=== PATIENT | female | born 1945 | race African-American/Black ===

== ENCOUNTER 2021-10-27 14:21 | Emergency (ER) | payer MEDICARE, BC, SELFPAY ==
[2021-10-27 14:18] VITALS: BP 145/74; PULSE 75; RESP 22; TEMP 37.3; O2SAT 99
[2021-10-27 14:30] LABS: Glucose Point of Care 174 mg/dl (65-105)
--- NOTE | 2021-10-27 15:00 | ED.GENADULT ---
HPI - General Adult General Chief complaint: Weakness Stated complaint: Abd Pain Time Seen by Provider: 10/27/21 14:43 History of Present Illness HPI narrative: 76-year-old female presenting to the emergency department from a local care facility. Patient does have dementia and goes to the care facility during the day but resides at home. Family states this morning patient was well-appearing and had no complaints. They states she ate her breakfast and was at her normal baseline. Care center was concerned that she was cold clammy and lethargic. Upon arrival to emergency room patient denies any complaints. Family feels that the patient is currently at her baseline. Due to her underlying dementia patient does not have recall of the events earlier in the day. Patient's blood sugar is stable. Related Data Allergies Allergy/AdvReac Type Severity Reaction Status Date / Time Penicillins Allergy Hives Verified 10/27/21 16:12 Review of Systems Review of Systems: Patient denies complaints but does have dementia at baseline. ROS unobtainable: Yes unobtainable due to medical condition Exam Narrative: APPEARANCE: Well appearing, no pain, no distress, well-nourished. HEAD: normocephalic, atraumatic. EYES: PERRLA/EOMI, conjunctivae clear. NOSE: Normal no drainage THROAT: Pharynx clear, no exudate. NECK: Supple. No adenopathy, no masses. RESPIRATORY: Airway patent, respirations nonlabored. Clear to auscultation bilaterally, no rales, rhonchi, wheezing. CARDIOVASCULAR: Regular rate and rhythm without murmurs rubs or gallops. ABDOMINAL: Soft, nontender, nondistended, normal bowel sounds MUSCULOSKELETAL: Moves all extremities. Strength/ROM intact, No edema, No calf tenderness. NEURO: Alert. Cranial nerves II through XII intact. Grossly intact SKIN: Warm, dry. Normal Color PSYCHIATRIC: Normal affect/mood. Course Course Emergency Course: Patient continues to deny any complaints at this time. Family was updated on the results of the work-up showing no evidence of infection. Patient has been resting comfortably the entire time in the emergency department. Patient is afebrile with no leukocytosis. Patient's electrolytes are within normal limits. Patient did have a mildly elevated lactic acid she was treated with 500 mL normal saline. Patient is tolerating p.o. UA was negative for urinary tract infection and COVID was also negative. Patient's family was encouraged to have close follow-up with the patient's primary care physician. All question concerns were addressed. Vital Signs Vital signs: Vital Signs Temperature 99.1 F 10/27/21 14:18 Pulse Rate 75 10/27/21 14:18 Respiratory Rate 22 H 10/27/21 14:18 Blood Pressure 145/74 H 10/27/21 14:18 Pulse Oximetry 99 10/27/21 14:18 Oxygen Delivery Room Air 10/27/21 14:18 Temperature 99.1 F 10/27/21 14:18 Pulse Rate 75 10/27/21 17:09 Respiratory Rate 17 10/27/21 17:09 Blood Pressure 131/58 L 10/27/21 17:09 Pulse Oximetry 98 10/27/21 17:09 Oxygen Delivery Room Air 10/27/21 14:18 Medical Decision Making Vital Signs Vital Signs: Vital Signs Temperature 99.1 F 10/27/21 14:18 Pulse Rate 75 10/27/21 14:18 Respiratory Rate 22 H 10/27/21 14:18 Blood Pressure 145/74 H 10/27/21 14:18 Pulse Oximetry 99 10/27/21 14:18 Oxygen Delivery Room Air 10/27/21 14:18 Temperature 99.1 F 10/27/21 14:18 Pulse Rate 75 10/27/21 17:09 Respiratory Rate 17 10/27/21 17:09 Blood Pressure 131/58 L 10/27/21 17:09 Pulse Oximetry 98 10/27/21 17:09 Oxygen Delivery Room Air 10/27/21 14:18 Lab Data Lab results reviewed: Yes I reviewed the patient's lab results. Result diagrams: 10/27/21 15:01 10/27/21 15:01 Labs: Lab Results 10/27/21 10/27/21 10/27/21 Range/Units 14:26 14:54 15:01 WBC 9.8 (4.5-10.0) K/mm3 RBC 4.51 (4.2-5.4) M/mm3 Hgb 11.9 L (12.0-15.0) g/dL Hct 36.9 L (37.0-47.0) %
[2021-10-27 15:08] LABS: Basophils Percent Auto 0.3 % (0.2-1.2); Eosinophils Absolute Auto 0.2 K/mm3 (0-0.3); Eosinophils Percent Auto 2.2 % (0-4.4); Hematocrit 36.9 % (37.0-47.0); Hemoglobin 11.9 g/dL (12.0-15.0); Immature Granulocyte Absolute 0.03 K/mm3 (0.00-0.031); Immature Granulocyte Percent A 0.3 % (0-0.5); Lymphocytes Absolute Auto 2.37 K/mm3 (0.9-3.2); Lymphocytes Percent Auto 24.2 % (18.3-44.2); Mean Corpuscular HGB Conc 32.2 g/dl (32-36); Mean Corpuscular Hemoglobin 26.4 pg (26-34); Mean Corpuscular Volume 81.8 fl (80-100); Mean Platelet Volume 11.1 fl (7.4-10.4); Monocytes Absolute Auto 0.5 K/mm3 (0.1-0.6); Monocytes Percent Auto 5.5 % (2.6-8.5); Neutrophils Absolute Auto 6.6 K/mm3 (1.3-6.7); Neutrophils Percent Auto 67.5 % (45.5-73.1); Platelet Count Result 178 k/mm3 (150-375); Red Blood Count 4.51 M/mm3 (4.2-5.4); Red Cell Distribution Width 13.1 % (11.5-14.5); White Blood Count 9.8 K/mm3 (4.5-10.0)
[2021-10-27 15:17] LABS: Lactic Acid Reflex 2.6 mmol/L (0.7-2.0)
[2021-10-27 15:20] LABS: Alanine Aminotransferase 15 U/L (6-35); Albumin Level 4.3 g/dL (3.5-5.1); Alkaline Phosphatase 70 U/L (38-126); Anion Gap 5 mmol/L (8-16); Aspartate Amino Transferase 23 U/L (14-36); Bilirubin,Total 0.2 mg/dL (0.2-1.3); Blood Urea Nitrogen 14 mg/dL (7-17); Calcium 9.1 mg/dL (8.4-10.2); Carbon Dioxide 29 mmol/L (22-30); Chloride 105 mmol/L (98-107); Estimated CRCL calculation 36 ml/min; Estimated Glomerular Filt Rate 58; Glucose 183 mg/dL (65-110); Lipase 86 U/L (23-300); Potassium 3.8 mmol/L (3.4-5.0); Sodium 139 mmol/L (137-145)
[2021-10-27 15:41] LABS: SARS-CoV-2 RNA PCR Negative
[2021-10-27 16:09] LABS: Mucus Urine Rare /lpf; RBC Urine 0-2 /hpf (0-2); Squamous Epithelial Cell Urine Rare /hpf (Few); WBC Urine 0-3 /hpf
[2021-10-27] MEDS: SODIUM CHLORIDE 0.9% IV 500 ML 999 ML IV CONT (16:13)
[2021-10-27 16:14] LABS: Add Urine Microscopic? NO; Appearance Urine Clear (Clear); Bilirubin Urine Negative (Negative); Blood Urine Negative (Negative); Color Urine Yellow (Yellow); Glucose Urine UA Negative (Negative); Ketones Urine Negative (Negative); Leukocyte Esterase Ur Negative LEU/UL (Negative); Nitrate Urine Negative (Negative); Protein Urine Negative (Negative); Specific Grav Ur 1.015 (1.001-1.035); Urobilinogen Urine 0.2 mg/dL (<2.0)
[2021-10-27 17:09] VITALS: BP 131/58; PULSE 75; RESP 17; O2SAT 98
[2021-10-27 18:06] LABS: Reflex Lactic Acid Yes or No Add Lactic
== END 2021-10-27 17:10 | disposition home or self-care (01) ==
PROVIDERS: Emergency Provider Emergency Medicine; PCP Family Medicine
DX: R23.1 Pallor (principal); R53.83 Other fatigue; F03.90 Unspecified dementia, unspecified severity, without behavioral disturbance, psychotic disturbance, mood disturbance, and anxiety; Z20.822 Contact with and (suspected) exposure to COVID-19
CPT/HCPCS: 36415; 51701; 80053; 81003; 82948; 83605; 83690; 85025; 99283; C9803; J7040; U0003; U0005